=== PATIENT | male | born 1985 | race Caucasian/White ===

== ENCOUNTER 2018-10-19 20:07 | Emergency (ER) | payer SELFPAY ==
[~2018-10-19] VITALS: Ht 162.6 cm; Wt 65.8 kg
[2018-10-19 21:00] VITALS: Ht 162.6 cm; Wt 65.8 kg
[2018-10-19 22:38] LABS: BASOPHIL % 0.4 % (0-2); PLATELET COUNT 319 x10^3mcL (130-400); RED CELL DISTRIBUTION WIDTH 13.3 % (11.5-14.5)
[2018-10-19 22:56] LABS: CALCIUM 8.9 mg/dL (8.5-10.1); CARBON DIOXIDE 30.2 mmol/L (21-32); CHLORIDE SERUM 102 mmol/L (98-107); GFR1 > 60 mL/min; GLUCOSE SERUM 98 mg/dL (74-106); POTASSIUM SERUM 3.9 mmol/L (3.5-5.1); SODIUM SERUM 140 mmol/L (136-145)
[2018-10-19 23:01] LABS: ALBUMIN 4.1 g/dL (3.4-5.0); ALKALINE PHOSPHATASE 105 U/L (46-116); ALT/SGPT 57 U/L (16-63); AST/SGOT 22 U/L (15-37); BILIRUBIN TOTAL 0.34 mg/dL (0.20-1.00); LIPASE 434 IU/L (73-393); TOTAL PROTEIN, SERUM 8.1 g/dL (6.4-8.2)
[2018-10-20 00:29] VITALS: BP 121/80
== END 2018-10-20 00:29 | disposition home or self-care (01) ==
LOC: ED 20:07
PROVIDERS: Emergency Medicine
DX: K52.9 Noninfective gastroenteritis and colitis, unspecified (principal)
CPT/HCPCS: J2270; J2405; J7030

== ENCOUNTER 2018-11-28 20:47 | Emergency (ER) | payer BC ==
[~2018-11-28] VITALS: Ht 162.6 cm; Wt 68.3 kg
[2018-11-28 21:15] VITALS: BP 134/80; Ht 162.6 cm; Wt 68.3 kg
== END 2018-11-28 22:25 | disposition home or self-care (01) ==
LOC: ED 20:47
DX: J10.1 Influenza due to other identified influenza virus with other respiratory manifestations (principal); J45.909 Unspecified asthma, uncomplicated
CPT/HCPCS: 87804; Q0092